=== PATIENT | female | born 1975 | race Caucasian/White ===

== ENCOUNTER → 2021-05-15 | Outpatient (REF) | LOC: M LAB 09:37 | PROVIDERS: ATTEND Nurse Practitioner Adult Health | DX: Z02.1 Encounter for pre-employment examination (principal) ==

== ENCOUNTER → 2022-07-14 | Outpatient (CLI) | payer OTHER, SELFPAY | LOC: M WHC 13:34 | PROVIDERS: ATTEND Internal Medicine | DX: Z12.31 Encounter for screening mammogram for malignant neoplasm of breast (principal) ==

== ENCOUNTER → 2024-07-18 | Outpatient (REF) | LOC: M PLAIMG 12:02 | PROVIDERS: ATTEND Internal Medicine | DX: M54.50 Low back pain, unspecified (principal) ==